=== PATIENT | male | born 2000 | race Two or more races ===

== ENCOUNTER 2022-10-08 18:39 | Emergency (ER) | payer OTHER ==
[~2022-10-08] VITALS: Ht 188 cm; Wt 113.6 kg
[2022-10-08] MEDS ORDERED: ACETAMINOPHEN 325 MG TAB PO ONE (22:00)
[2022-10-08] MEDS ORDERED: cefTRIAXone SOD 1,000 MG VL IM ONE (22:15)
[2022-10-08] MEDS ORDERED: AMOX-277 PO (22:16)
[2022-10-08] MEDS ORDERED: IBUP800T27 PO (22:16)
[2022-10-08 23:25] VITALS: BP 141/84
== END 2022-10-08 23:25 | disposition home or self-care (01) ==
LOC: ER 18:39
DX: K04.7 Periapical abscess without sinus (principal); K00.0 Anodontia
CPT/HCPCS: 96372; 99283; J0696